=== PATIENT | female | born 1995 | race Caucasian/White ===

== ENCOUNTER 2021-07-02 05:30 | Inpatient (IN) | payer OTHER ==
[~2021-07-02] VITALS: Ht 157.5 cm; Wt 61.7 kg
[~2021-07-02 05:30] MED LIST: MACROBID 100 M100 MG PO; PLAQUENIL200 MG PO; PRENATAL VITAM1 EAC6 PO; ZANTAC150 MG PO; ZOFRAN ODT 4 MG4 MG SL
[2021-07-02 10:21] LABS: HEMOGLOBIN 11.9 gm/dl (12.3-15.3); RED BLOOD COUNT 3.68 M/UL (4.00-5.10); WHITE BLOOD COUNT 9.4 K/UL (4.5-11.0)
[2021-07-02] MEDS ORDERED: IBUPROFEN600 MG PO (12:30)
[2021-07-02] MEDS ORDERED: FEROSUL325 MG PO (12:30)
[2021-07-02] MEDS ORDERED: DOCUSATE SODIU250 MG PO (12:30)
[2021-07-03 08:35] LABS: HEMOGLOBIN 11.8 gm/dl (12.3-15.3)
== END 2021-07-04 15:00 | disposition home or self-care (01) | DRG 807 ==
LOC: OB 05:30
PROVIDERS: Obstetrics & Gynecology; ADMIT Obstetrics & Gynecology
PROC: 10E0XZZ Delivery of Products of Conception, External Approach (ICD-10-PCS; principal; 2021-07-02)
PROC: 3E033VJ Introduction of Other Hormone into Peripheral Vein, Percutaneous Approach (ICD-10-PCS; 2021-07-02)
PROC: 10907ZC Drainage of Amniotic Fluid, Therapeutic from Products of Conception, Via Natural or Artificial Opening (ICD-10-PCS; 2021-07-02)
DX: O99.892 Other specified diseases and conditions complicating childbirth (principal); Z37.0 Single live birth; Z20.822 Contact with and (suspected) exposure to COVID-19; M32.9 Systemic lupus erythematosus, unspecified; Z87.442 Personal history of urinary calculi; Z3A.39 39 weeks gestation of pregnancy
CPT/HCPCS: 36415; 51702; 80307; 81001; 85014; 85018; 85025; 87420; J2590; U0002